=== PATIENT | female | born 1955 | race Two or more races ===

== ENCOUNTER 2018-09-22 12:52 | Day surgery (SDC) | payer OTHER ==
[2018-09-22] MEDS ORDERED: FENTAnyl 50 MCG/ML VIAL (13:47)
[2018-09-22] MEDS ORDERED: PROPOFOL 20 ML (13:47)
[2018-09-22] MEDS ORDERED: ONDANSETRON 4 MG INJ IV (15:30)
[2018-09-22] MEDS ORDERED: MEPERIDINE 25 MG INJ IV (15:30)
[2018-09-22] MEDS ORDERED: HYDROmorphONE 1 MG/5 ML IV SYRINGE IV ×3 (15:30)
[2018-09-22] MEDS ORDERED: FENTAnyl 50 MCG/ML VIAL IV ×3 (15:30)
[2018-09-22] MEDS ORDERED: OXYCODONE/ACETAMINOPHEN (5/325) TAB PO ×2 (15:30)
[2018-09-22] MEDS ORDERED: LABETALOL HCL 20MG INJ IV (15:30)
[2018-09-22] MEDS ORDERED: hydrALAzine 20 MG INJ IV (15:30)
[2018-09-22] MEDS ORDERED: DIPHENHYDRAMINE 50 MG INJ IV (15:30)
== END 2018-09-22 14:47 | disposition home or self-care (01) ==
LOC: GIL 12:52
DX: D12.6 Benign neoplasm of colon, unspecified (principal); K63.89 Other specified diseases of intestine
CPT/HCPCS: 45385; 88305